=== PATIENT | female | born 1975 | race Caucasian/White ===

== ENCOUNTER 2018-10-23 14:03 | Outpatient (CLI) | payer MEDICARE, OTHER ==
[2018-10-23] MEDS ORDERED: GABA300C10 PO (14:57)
[2018-10-23] MEDS ORDERED: ALEN70TA6 PO (14:57)
[2018-10-23] MEDS ORDERED: LINA290C PO (14:57)
[2018-10-23] MEDS ORDERED: TIZA2CAP PO (14:57)
[2018-10-23] MEDS ORDERED: DOXE3TAB3 PO (14:57)
[2018-10-23] MEDS ORDERED: HYDR-3245 PO (14:57)
[2018-10-23] MEDS ORDERED: OXYB15TA PO (14:57)
[2018-10-23] MEDS ORDERED: LEVE100020 PO (14:57)
== END 2018-10-23 23:59 | disposition home or self-care (01) ==
LOC: STAR 14:03
PROVIDERS: ATTEND Orthopaedic Surgery
DX: Z02.9 Encounter for administrative examinations, unspecified (principal)

== ENCOUNTER 2018-12-03 07:08 | Day surgery (SDC) | payer OTHER ==
[~2018-12-03] VITALS: Ht 167.6 cm; Wt 61.0 kg
[~2018-12-03 07:08] MED LIST: ALEN70TA6 PO; DOXE3TAB3 PO; EPINEPHRINE 1 MG/ML, 1ML ONE; GABA300C10 PO; HYDR-3245 PO; LEVE100020 PO; LIDOCAINE 1%, 20ML ONE; LINA290C PO; OXYB15TA PO; TIZA2CAP PO
[2018-12-03] MEDS ORDERED: ESCI20TA PO (07:47)
[2018-12-03] MEDS ORDERED: GABA600T7 PO (07:47)
[2018-12-03] MEDS ORDERED: LINA290C PO (07:47)
[2018-12-03] MEDS ORDERED: LEVE750T37 PO (07:47)
[2018-12-03] MEDS ORDERED: OXYB5TAB7 PO (07:47)
[2018-12-03] MEDS ORDERED: TIZA2CAP PO (07:47)
[2018-12-03] MEDS ORDERED: DOXE6TAB3 PO (07:47)
[2018-12-03] MEDS ORDERED: HYDR-3245 PO (07:47)
[2018-12-03 07:48] VITALS: BP 110/77
[2018-12-03] MEDS ORDERED: LACTATED RINGERS 1,000 ML IV SCH (07:48)
[2018-12-03] MEDS ORDERED: FENTANYL PF 250 MCG/5ML ONE (07:50)
[2018-12-03] MEDS ORDERED: MIDAZOLAM 1 MG/ML, 2ML ONE (07:50)
[2018-12-03] MEDS ORDERED: ROPIvacaine/PF 0.5%, 30 ML ONE ×2 (07:51→10:12)
[2018-12-03] MEDS ORDERED: DEXAMETHASONE 4 MG/ML, 1ML ONE (08:50)
[2018-12-03] MEDS ORDERED: CEFAZOLIN 1,000 MG ONE (08:50)
[2018-12-03] MEDS ORDERED: PROPOFOL 10 MG/ML, 20ML ONE (08:50)
[2018-12-03] MEDS ORDERED: MEPERIDINE/PF 25MG/0.5ML IVPush PRN (09:00)
[2018-12-03] MEDS ORDERED: PROMETHAZINE 25 MG/ML, 1ML IV PRN (09:00)
[2018-12-03] MEDS ORDERED: PROMETHAZINE 25 MG/ML, 1ML IM PRN ×2 (09:00)
[2018-12-03] MEDS ORDERED: MORPHINE SULFATE 4 MG/ML, 1ML IVPush PRN (09:00)
[2018-12-03] MEDS ORDERED: OXYcodone 5 MG/5 ML ORAL.SOL UDC PO PRN (09:00)
[2018-12-03] MEDS ORDERED: PROMETHAZINE 12.5 MG SUPP PR PRN (09:00)
[2018-12-03] MEDS ORDERED: HYDROmorphone 2 MG/ML, 1ML IVPush PRN (09:00)
[2018-12-03] MEDS ORDERED: PROMETHAZINE 25 MG SUPP PR PRN (09:00)
[2018-12-03] MEDS ORDERED: ONDANSETRON ODT 8 MG PO PRN (09:00)
[2018-12-03] MEDS ORDERED: LABETALOL 5MG/ML, 20ML IV PRN (09:00)
[2018-12-03] MEDS ORDERED: ONDANSETRON 2MG/ML, 2ML IV PRN (09:00)
[2018-12-03] MEDS ORDERED: ACETAMINOPHEN 325 MG TABLET PO PRN (09:00)
[2018-12-03] MEDS ORDERED: hydrALAzine 20 MG/ML, 1ML IV PRN (09:00)
[2018-12-03] MEDS ORDERED: FENTANYL PF 100 MCG/2ML IV PRN (09:00)
[2018-12-03] MEDS ORDERED: HYDROmorphone 2 MG/ML, 1ML ONE (10:31)
[2018-12-03] MEDS ORDERED: FENTANYL PF 100 MCG/2ML ONE (10:31)
[2018-12-03] MEDS ORDERED: OXYcodone 5 MG/5 ML ORAL.SOL UDC ONE (10:31)
== END 2018-12-03 12:30 | disposition home or self-care (01) ==
LOC: OUT 07:08
PROVIDERS: ATTEND Orthopaedic Surgery
DX: S83.512A Sprain of anterior cruciate ligament of left knee, initial encounter (principal); S83.212A Bucket-handle tear of medial meniscus, current injury, left knee, initial encounter; X58.XXXA Exposure to other specified factors, initial encounter; M65.862 Other synovitis and tenosynovitis, left lower leg; F32.9 Major depressive disorder, single episode, unspecified; Z88.6 Allergy status to analgesic agent; Y93.89 Activity, other specified; Y92.89 Other specified places as the place of occurrence of the external cause; Y99.8 Other external cause status
CPT/HCPCS: 20680; 29881; 29888; 64447; 73560; 76000; C1713; C1762; J0171; J0690; J1100; J2250; J2704; J2795; J3010; J3490; J7120